=== PATIENT | male | born 1975 | race Caucasian/White ===

== ENCOUNTER 2020-01-13 19:18 | Emergency (ER) | payer MEDICAID ==
[~2020-01-13] VITALS: Ht 185.4 cm; Wt 84.5 kg
[2020-01-13] MEDS ORDERED: LIDOcaine 1% W/epiNEPHrine 1:200,000 10ml vial IJ ONE (19:50)
[2020-01-13] MEDS ORDERED: TETanus/Pertussis (Acell)/Diphther VAC/PF (Tdap-Adult) 0.5ml syringe IMVAC ONE (19:50)
[2020-01-13 20:36] VITALS: BP 113/64
== END 2020-01-13 20:38 | disposition home or self-care (01) ==
LOC: ER 19:18
DX: S01.01XA Laceration without foreign body of scalp, initial encounter (principal); W18.39XA Other fall on same level, initial encounter; Y93.89 Activity, other specified; Y92.89 Other specified places as the place of occurrence of the external cause; Y99.8 Other external cause status
CPT/HCPCS: 12001; 12002; 90471; 90715; 99283

== ENCOUNTER 2020-01-24 09:23 | Emergency (ER) | payer MEDICAID ==
[~2020-01-24] VITALS: Ht 185.4 cm; Wt 82.7 kg
[2020-01-24 09:35] VITALS: BP 132/77
== END 2020-01-24 09:49 | disposition home or self-care (01) ==
LOC: ER 09:24
DX: S01.01XD Laceration without foreign body of scalp, subsequent encounter (principal); W18.39XD Other fall on same level, subsequent encounter
CPT/HCPCS: 99281

== ENCOUNTER 2020-08-13 17:55 | Emergency (ER) | payer MEDICAID ==
[~2020-08-13] VITALS: Ht 185.4 cm; Wt 86.3 kg
[2020-08-13 18:05] VITALS: BP 125/72
[2020-08-13] MEDS ORDERED: IBUP-1984 PO (18:57)
== END 2020-08-13 19:11 | disposition home or self-care (01) ==
LOC: ER 17:56
DX: M70.42 Prepatellar bursitis, left knee (principal); M25.462 Effusion, left knee; Z79.899 Other long term (current) drug therapy; Y93.89 Activity, other specified
CPT/HCPCS: 99282